=== PATIENT | male | born 1955 | race Caucasian/White ===

== ENCOUNTER → 2016-06-14 | Outpatient (CLI) | payer MEDICARE, OTHER ==
[~2016-06-14] MED LIST: APIX5TAB PO; CLIN-73 PO; DIGO125T6 PO; DOCU250C58 PO; FAMO20TA18 PO; FER325 PO; FINA5TAB4 PO; LINA5TAB PO; NEPH PO; PROP60CA PO; SEVE800T10 PO; SIMV20TA PO; TRAZ50TA18 PO
[2016-06-14 13:31] LABS: CREATININE 2.16 mg/dl (0.61-1.24)
[2016-06-14 13:32] LABS: CALCIUM 9.3 mg/dl (8.4-10.2)
[2016-06-17 10:25] LABS: COLLECTION PERIOD 24 hrs
[2016-06-17 10:37] LABS: SCRET 2.16 mg/dl (0.61-1.24)
== END | disposition home or self-care (01) ==
LOC: LAB 12:49
PROVIDERS: ATTEND Internal Medicine Nephrology
DX: N18.5 Chronic kidney disease, stage 5 (principal)
CPT/HCPCS: 80048; 81003; 82570; 82575; 84156

== ENCOUNTER → 2016-06-14 | Outpatient (CLI) | payer MEDICARE, OTHER ==
--- NOTE | 2016-06-14 15:33 | RADRPT ---
PROCEDURE: Renal US. CLINICAL INDICATION: Renal dysfunction. End-stage renal disease. TECHNIQUE: Multiple sonographic images of the kidneys and urinary bladder were obtained. The imag es were reviewed on a PACS workstation. COMPARISON: Noncontrast CT scan of the abdomen and pelvis dated 01/30/2015. FINDINGS: The right kidney measures 10.9 cm. The left kidney measures 10.5 cm. There is mild right hydronephrosis. There is no left hydronephrosis. There is no solid renal mass. There is a possible hypoechoic mass superiorly in the left kidney donna suring 1.9 x 2.4 cm. There is a possible small nonobstructing calculus in the lower right kidney measuring 0.8 cm. There is no other renal calculus. Renal parenchymal thickness and echogenicity is normal bilaterally. The perirenal regions are normal with no fluid collection or mass. The urinary bladder is empty. The prostate is enlarged. IMPRESSION: 1. Mild right hydronephrosis. 2. No left hydronephrosis. 3. Possible hypoechoic mass superiorly in the left kidney measuring 1.9 x 2.4 cm. This was not visu alized on prior CT scan and is probably due to artifact. 4. Possible nonobstructing calculus in the lower right kidney. This was not visualized on prior CT scan and is probably due to artifact. 5. Empty urinary bladder. 6. Enlarged prostate. 7. Otherwise unremarkable study. RPTAT: QQ .Chin Woodward MD, Date Time Electronically viewed and signed by .Chin Woodward MD, MD on 06/14/2016 15:33 .R/
== END | disposition home or self-care (01) ==
LOC: U/S 12:50
PROVIDERS: ATTEND Internal Medicine Nephrology
DX: N18.6 End stage renal disease (principal); R60.0 Localized edema; N13.30 Unspecified hydronephrosis; N28.89 Other specified disorders of kidney and ureter; N40.0 Benign prostatic hyperplasia without lower urinary tract symptoms
CPT/HCPCS: 76775